=== PATIENT | male | born 1970 | race Caucasian/White ===

== ENCOUNTER 2022-03-06 16:29 | Emergency (ER) | payer OTHER, SELFPAY ==
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
[2022-03-06 16:58] VITALS: BP 159/92; PULSE 120; RESP 18; TEMP 36.7; O2SAT 97; BMI 25.1
[2022-03-06 18:27] VITALS: BP 150/104; PULSE 98; RESP 18; O2SAT 96
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
[2022-03-06] MEDS: Acetaminophen 325 MG TABLET 650 MG PO (18:39)
--- NOTE | 2022-03-06 20:06 | PC.NURSE ---
Reviewed discharge instructions with pt. pt verblaized understanding.
== END 2022-03-06 20:19 | disposition home or self-care (01) ==
PROVIDERS: Emergency Provider Emergency Medicine
DX: S13.4XXA Sprain of ligaments of cervical spine, initial encounter (principal); S06.0X0A Concussion without loss of consciousness, initial encounter; R51.9 Headache, unspecified; M54.2 Cervicalgia; R00.2 Palpitations; R42 Dizziness and giddiness; V43.53XA Car driver injured in collision with pick-up truck in traffic accident, initial encounter; Y93.9 Activity, unspecified; Y92.410 Unspecified street and highway as the place of occurrence of the external cause; Y99.9 Unspecified external cause status
CPT/HCPCS: 70450; 72125; 93005; 99284